=== PATIENT | female | born 1995 | race African-American/Black ===

== ENCOUNTER 2017-11-20 14:35 | Emergency (ER) | payer MEDICAID, OTHER ==
[~2017-11-20] VITALS: Ht 170.2 cm; Wt 76.9 kg
[~2017-11-20 14:35] MED LIST: BENZ100 PO; Z.0.NO CURRENT MEDS; ZITH250T PO
[2017-11-20 14:50] VITALS: BP 133/61; PULSE 77; RESP 16; TEMP 98.3; O2SAT 100
[2017-11-20 15:44] VITALS: BP 105/54; PULSE 76; RESP 18; O2SAT 100
[2017-11-20] MEDS ORDERED: SODIUM CHLOR 0.9% 1000 ML INJ 1,000 ML IV ONE ×2 (15:46→17:30)
[2017-11-20 15:49] VITALS: RESP 18; O2SAT 98
[2017-11-20] MEDS ORDERED: SODIUM CHLORIDE 0.9% FLUSH 10 ML FLUSH IVF PRN (16:00)
[2017-11-20 16:05] LABS: AUTOMATED NEUTROPHIL # 7.1 TH/MM3 (1.8-7.7); BASOPHIL % 0.4 % (0.0-2.0); EOSINOPHIL % 0.4 % (0.0-4.0); HEMATOCRIT 33.5 % (35.0-46.0); LYMPHOCYTE # 1.6 TH/MM3 (1.0-4.8); MEAN CELL VOLUME 76.5 FL (80.0-100.0); MEAN CORPUSCULAR HEMOGLOBIN 25.1 PG (27.0-34.0); MEAN CORPUSCULAR HGB CONC 32.9 % (32.0-36.0); MEAN PLATELET VOLUME 8.1 FL (7.0-11.0); MONO % 8.4 % (0.0-8.0); MONOCYTE # 0.8 TH/MM3 (0-0.9); NEUT % 73.8 % (16.0-70.0); PLATELET COUNT 295 TH/MM3 (150-450); RED BLOOD COUNT 4.38 MIL/MM3 (4.00-5.30); WHITE BLOOD COUNT 9.6 TH/MM3 (4.0-11.0)
[2017-11-20 16:07] LABS: BACTERIA, URINE RARE /hpf; BILIRUBIN, URINE NEG (NEG); BLOOD, URINE NEG (NEG); GLUCOSE,URINE NEG (NEG); KETONE, URINE 80 OR GREATER mg/dL (NEG); MUCUS URINE MANY /lpf (OCC); NITRITE,URINE NEG (NEG); SQUAMOUS EPITHELIAL CELL URINE 7 /hpf (0-5); URINE COLOR YELLOW (YELLW/STRAW); URINE LEUKOCYTE ESTERASE NEG (NEG)
--- NOTE | 2017-11-20 16:12 | PD ---
HPI Chief Complaint: Related Problem Time Seen by Provider: 15:37 Travel History International Travel<30 days: No Contact w/Intl Traveler<30days: No Traveled to known affect area: No History of Present Illness HPI Patient is a 22-year-old female presented to the emergency department for evaluation of nausea and vomiting. 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 Patient states his been ongoing throughout her first trimester, she is approximately 10 weeks per report. She denies any chest pain, shortness of breath, abdominal pain. She states she has not been urinating very much. She has no other complaints, symptom onset is gradual, symptoms are moderate in nature. Patient reports using antinausea medications at home with no improvement. PFSH Past Medical History Asthma: Yes Immunizations Current: Yes ?: LMP: 09/07/17 : 2 Para: 1 Social History Alcohol Use: No Tobacco Use: No Substance Use: No Allergies-Medications (Allergen,Severity, Reaction): Coded Allergies: No Known Allergies (Verified , 04/29/15) Reported Meds & Prescriptions Reported Meds & Active Scripts Active Tessalon Perles (Benzonatate) 100 Mg Cap 100 Mg PO TID PRN Zithromax Z-Jason (Azithromycin) 250 Mg Tab 250 Mg PO DIRECTED 5 Days 500 MG (2 TABLETS) PO ON DAY 1, THEN 250 MG (1 TABLET) PO ON DAYS 2 TO 5. Reported No Current Meds (Miscellaneous Medication) Misc Review of Systems Except as stated in HPI: all other systems reviewed are Neg Gastrointestinal: Positive: Nausea, Vomiting Genitourinary: Positive: Decreased Urinary Output Physical Exam Narrative GENERAL: Well-developed, well-nourished, alert female. Presenting in no acute distress. SKIN: Warm and dry. HEAD: Atraumatic. Normocephalic. EYES: Pupils equal and round. No scleral icterus. No injection or drainage. ENT: No nasal bleeding or discharge. Mucous membranes pink and moist. NECK: Trachea midline. No JVD. CARDIOVASCULAR: Regular rate and rhythm. RESPIRATORY: No accessory muscle use. Clear to auscultation. Breath sounds equal bilaterally. GASTROINTESTINAL: Abdomen soft, mildly tender in suprapubic region, no rebound, no guarding, nondistended. Hepatic and splenic margins not palpable. MUSCULOSKELETAL: Extremities without clubbing, cyanosis, or edema. No obvious deformities. NEUROLOGICAL: Awake and alert. No obvious cranial nerve deficits. Motor grossly within normal limits. Five out of 5 muscle strength in the arms and legs. Normal speech. PSYCHIATRIC: Appropriate mood and affect; insight and judgment normal. Data Data Last Documented VS Vital Signs Date Time Temp Pulse Resp B/P (MAP) Pulse Ox O2 Delivery O2 Flow Rate FiO2 11/20/17 15:49 18 98 Room Air 11/20/17 15:44 76 11/20/17 14:50 98.3 Orders Orders Complete Blood Count With Diff (11/20/17 15:46) Comprehensive Metabolic Panel (11/20/17 15:46) Lipase (11/20/17 15:46) Iv Access Insert/Monitor (11/20/17 15:46) Ecg Monitoring (11/20/17 15:46) Oximetry (11/20/17 15:46) Sodium Chlor 0.9% 1000 Ml Inj (Ns 1000 M (11/20/17 15:46) Sodium Chloride 0.9% Flush (Ns Flush) (11/20/17 16:00) Urinalysis - C+S If Indicated (11/20/17 15:49) Promethazine Inj (Phenergan Inj) (11/20/17 17:30) Sodium Chlor 0.9% 1000 Ml Inj (Ns 1000 M (11/20/17 17:30) Labs Laboratory Tests Test 11/20/17 15:48 11/20/17 15:51 White Blood Count 9.6 TH/MM3 Red Blood Count 4.38 MIL/MM3 Hemoglobin 11.0 GM/DL Hematocrit 33.5 % Mean Corpuscular Volume 76.5 FL Mean Corpuscular Hemoglobin 25.1 PG Mean Corpuscular Hemoglobin Concent 32.9 % Red Cell Distribution Width 17.0 % Platelet Count 295 TH/MM3 Mean Platelet Volume 8.1 FL Neutrophils (%) (Auto) 73.8 % Lymphocytes (%) (Auto) 17.0 % Monocytes (%) (Auto) 8.4 % Eosinophils (%) (Auto) 0.4 % Basophils (%) (Auto) 0.4 % Neutrophils # (Auto) 7.1 TH/MM3 Lymphocytes # (Auto) 1.6 TH/MM3 Monocytes # (Auto) 0.8 TH/MM3 Eosinophils # (Auto) 0.0 TH/MM3 Basophils # (Auto) 0.0 TH/MM3 CBC Comment DIFF FINAL Differential Comment Blood Urea Nitrogen 7 MG/DL Creatinine 0.55 MG/DL Random Glucose 74 MG/DL Total Protein 7.7 GM/DL Albumin 3.7 GM/DL Calcium Level 8.9 MG/DL Alkaline Phosphatase 41 U/L Aspartate Amino Transf (AST/SGOT) 20 U/L Alanine Aminotransferase (ALT/SGPT) 12 U/L Total Bilirubin 0.2 MG/DL Sodium Level 137 MEQ/L Potassium Level 3.8 MEQ/L Chloride Level 105 MEQ/L Carbon Dioxide Level 18.8 MEQ/L Anion Gap 13 MEQ/L Estimat Glomerular Filtration Rate 166 ML/MIN Lipase 121 U/L Urine Color YELLOW Urine Turbidity CLOUDY Urine pH 6.0 Urine Specific [place] 1.023 Urine Protein NEG mg/dL Urine Glucose (UA) NEG mg/dL Urine Ketones 80 OR GREATER mg/dL Urine Occult Blood NEG Urine Nitrite NEG Urine Bilirubin NEG Urine Urobilinogen 2.0 mg/dL Urine Leukocyte Esterase NEG Urine RBC 1 /hpf Urine WBC 6 /hpf Urine Squamous Epithelial Cells 7 /hpf Urine Bacteria RARE /hpf Urine Mucus MANY /lpf Microscopic Urinalysis Comment CULT NOT INDICATED MDM Medical Decision Making Medical Screen Exam Complete: Yes Emergency Medical Condition: Yes Interpretation(s) Laboratory Tests Test 11/20/17 15:48 11/20/17 15:51 White Blood Count 9.6 TH/MM3 Red Blood Count 4.38 MIL/MM3 Hemoglobin 11.0 GM/DL Hematocrit 33.5 % Mean Corpuscular Volume 76.5 FL Mean Corpuscular Hemoglobin 25.1 PG Mean Corpuscular Hemoglobin Concent 32.9 % Red Cell Distribution Width 17.0 % Platelet Count 295 TH/MM3 Mean Platelet Volume 8.1 FL Neutrophils (%) (Auto) 73.8 % Lymphocytes (%) (Auto) 17.0 % Monocytes (%) (Auto) 8.4 % Eosinophils (%) (Auto) 0.4 % Basophils (%) (Auto) 0.4 % Neutrophils # (Auto) 7.1 TH/MM3 Lymphocytes # (Auto) 1.6 TH/MM3 Monocytes # (Auto) 0.8 TH/MM3 Eosinophils # (Auto) 0.0 TH/MM3 Basophils # (Auto) 0.0 TH/MM3 CBC Comment DIFF FINAL Differential Comment Blood Urea Nitrogen 7 MG/DL Creatinine 0.55 MG/DL Random Glucose 74 MG/DL Total Protein 7.7 GM/DL Albumin 3.7 GM/DL Calcium Level 8.9 MG/DL Alkaline Phosphatase 41 U/L Aspartate Amino Transf (AST/SGOT) 20 U/L Alanine Aminotransferase (ALT/SGPT) 12 U/L Total Bilirubin 0.2 MG/DL Sodium Level 137 MEQ/L Potassium Level 3.8 MEQ/L Chloride Level 105 MEQ/L Carbon Dioxide Level 18.8 MEQ/L Anion Gap 13 MEQ/L Estimat Glomerular Filtration Rate 166 ML/MIN Lipase 121 U/L Urine Color YELLOW Urine Turbidity CLOUDY Urine pH 6.0 Urine Specific [place] 1.023 Urine Protein NEG mg/dL Urine Glucose (UA) NEG mg/dL Urine Ketones 80 OR GREATER mg/dL Urine Occult Blood NEG Urine Nitrite NEG Urine Bilirubin NEG Urine Urobilinogen 2.0 mg/dL Urine Leukocyte Esterase NEG Urine RBC 1 /hpf Urine WBC 6 /hpf Urine Squamous Epithelial Cells 7 /hpf Urine Bacteria RARE /hpf Urine Mucus MANY /lpf Microscopic Urinalysis Comment CULT NOT INDICATED Vital Signs Date Time Temp Pulse Resp B/P (MAP) Pulse Ox O2 Delivery O2 Flow Rate FiO2 11/20/17 15:49 18 98 Room Air 11/20/17 15:44 76 18 105/54 (71) 100 Room Air 11/20/17 14:50 98.3 77 16 133/61 (85) 100 Differential Diagnosis Metabolic abnormality versus UTI versus arrhythmia versus other Narrative Course Patient is a 22-year-old female presenting for evaluation of nausea vomiting in . Patient's vital signs are stable. Labs and imaging ordered and pending. IV fluids ordered. Patient reports that she is not nauseated at this time. An oral fluid challenge was attempted. Patient became nauseated, she was given Phenergan IM. Labs reviewed, no acute findings identified. Patient was given a second liter of IV fluids. Patient attempted a second oral fluid challenge, this time she was able to tolerate approximately 8 ounces of Gatorade. Patient will be discharged home, she will be given a prescription for Phenergan. She is encouraged to follow-up with her cad manager. She was advised to return to emergency department for any new or worsening symptoms. Patient verbalized understanding of instructions. Patient stable for discharge. Plan of care was discussed with my attending physician prior to patient's discharge. Diagnosis Primary Impression: Hyperemesis gravidarum Referrals: [facility] 1 day Patient Instructions: General Instructions, Hyperemesis Gravidarum (ED) Additional Instructions: Follow-up with your cad manager in 1-2 days Maintain adequate fluid intake Take medications as needed as directed Phenergan may make you very drowsy, do not drive or operate machinery while taking this medication Return to emergency department for any new or worsening symptoms Med/Other Pt SpecificInfo: Prescription(s) given Scripts Promethazine (Phenergan) 25 Mg Tablet 25 MG PO Q6H Y for NAUSEA OR VOMITING, #10 TAB 0 Refills Prov: Marilyn Glover 11/20/17 Disposition: 01 DISCHARGE HOME Condition: Stable Marilyn Glover Nov 20, 2017 16:12
[2017-11-20 16:25] LABS: ALBUMIN 3.7 GM/DL (3.4-5.0); ALT (GPT) 12 U/L (10-53); AST (GOT) 20 U/L (15-37); BICARBONATE 18.8 MEQ/L (21.0-32.0); BLOOD UREA NITROGEN 7 MG/DL (7-18); CALCIUM 8.9 MG/DL (8.5-10.1); CHLORIDE 105 MEQ/L (98-107); CREATININE 0.55 MG/DL (0.50-1.00); GLOMERULAR FILTRATION RATE 166 ML/MIN (>89); GLUCOSE,RANDOM 74 MG/DL (74-106); SODIUM (NA) 137 MEQ/L (136-145)
[2017-11-20 16:27] LABS: ALKALINE PHOSPHATASE 41 U/L (45-117); TOTAL BILIRUBIN ADULT 0.2 MG/DL (0.2-1.0); TOTAL PROTEIN 7.7 GM/DL (6.4-8.2)
[2017-11-20] MEDS ORDERED: PROMETHAZINE INJ 25 MG/ML VIAL IM ONE (17:30)
[2017-11-20] MEDS ORDERED: PROM25TA10 PO (20:30)
== END 2017-11-20 21:10 | disposition home or self-care (01) ==
LOC: NEPE 14:35
DX: O21.0 Mild hyperemesis gravidarum (principal); O99.511 Diseases of the respiratory system complicating pregnancy, first trimester; J45.909 Unspecified asthma, uncomplicated; Z79.899 Other long term (current) drug therapy; Z3A.10 10 weeks gestation of pregnancy
CPT/HCPCS: 80053; 81001; 83690; 85025; 96360; 96361; 96372; 99284; J2550; J7030